=== PATIENT | female | born 1975 | race Caucasian/White ===

== ENCOUNTER → 2016-09-16 | Day surgery (SDC) | payer OTHER ==
[~2016-09-16] MED LIST: BUPIVACAINE 0.5% 30 ML SDV ONE; DEPO METHYLPREDNISOLONE 80 MG/ML SDV ONE; IOPAMIDOL (ISOVUE-M 300) 15 ML VIAL IV ONE
--- NOTE | 2016-09-16 20:03 | IR ---
L5-S1, L4-L5 Left-Sided Facet Injection Indication: Significant pain to the right buttock, inguinal, and posterior thigh region. No signific ant relief from prior SI joint injection. Retrograde review of the patient's MRI shows facet disease and fluid in the L4-L5 and L5-S1 facets. They are left side predominant. I did not see any particular nerve impingements to explain the patie nt's presenting pain distribution. I thought, therefore, facet injection was reasonable. Informed Consent: Obtained from the patient. Risks and benefits were discussed. Cross Cutting Measure: Patient's current list of medications including all known prescriptions, over -the-counters, herbals, and vitamin/mineral/dietary supplements are reviewed. Medications' name, dos age, frequency, and route of administration are confirmed. Patient is a non-smoker. Prophylactic Antibiotic: Cefazolin was not ordered and administered for antimicrobial prophylaxis be cause it was not medically necessary. VTE Prophylaxis: There is not an order for VTE prophylaxis to be given within 24 hours of the proced ure end time. VTE prophylaxis was not given because it was not medically necessary. Technique: Patient is placed in prone position. A "timeout" procedure was performed to identify the correct patient and the correct procedure. 1% Xylocaine was used for local anesthetic. All element s of maximal sterile barrier technique, including cap, mask, sterile gown, sterile gloves, large ster ile sheet, hand hygiene, and 2% chlorhexidine for cutaneous antisepsis, followed. A 22-gauge spinal needle is inserted into the facet joints at L4-L5 and L5-S1 respectively. Contrast injection confirms satisfactory placement of the needle into the joints. Each joint is filled with 50 mg of Depo-Medrol and a 3 mL mixture of lidocaine and bupivacaine. The patient tolerated the proc edure well. Fluoroscopy: 1.5 minutes, 3 images. Impression: Left-sided L4-L5 and L5-S1 facet joint injection, as above, reproducing symptoms during injection.
== END | disposition home or self-care (01) ==
LOC: FIMAGING 15:02
PROVIDERS: ATTEND Radiology Diagnostic Radiology
PROC: 3E0S33Z Introduction of Anti-inflammatory into Epidural Space, Percutaneous Approach (ICD-10-PCS; principal; 2016-09-16)
PROC: 3E0S3BZ Introduction of Anesthetic Agent into Epidural Space, Percutaneous Approach (ICD-10-PCS; principal; 2016-09-16)
DX: M54.16 Radiculopathy, lumbar region (principal)
CPT/HCPCS: J1020; Q9967

== ENCOUNTER → 2017-05-16 | Outpatient (CLI) | payer OTHER | LOC: FIMAGING 07:52 | DX: Z12.31 Encounter for screening mammogram for malignant neoplasm of breast (principal); Z80.3 Family history of malignant neoplasm of breast | CPT/HCPCS: G0202 ==

== ENCOUNTER → 2018-10-23 | Outpatient (CLI) | payer OTHER | LOC: FIMAGING 07:39 | DX: Z12.31 Encounter for screening mammogram for malignant neoplasm of breast (principal) ==